=== PATIENT | female | born 1960 | race Caucasian/White ===

== ENCOUNTER 2016-09-17 11:11 | Emergency (ER) | payer BC ==
[~2016-09-17] VITALS: Ht 177.8 cm; Wt 141.5 kg
[2016-09-17 11:20] VITALS: BP 142/96; PULSE 76; RESP 18; TEMP 98; O2SAT 98
--- NOTE | 2016-09-17 11:47 | PD ---
HPI . left knee pain Chief Complaint: Injury Time Seen by Provider: 11:47 Travel History International Travel<30 days: No Contact w/Intl Traveler<30days: No Traveled to known affect area: No History of Present Illness HPI 55-year-old female with no significant past medical history here with complaints of left knee pain after sustaining a fall yesterday evening. Patient fell down and hurt her left knee. She is now complaining of pain over the entire knee. There is a small area of ecchymosis to the left medial knee along with some diffuse edema. Pain is rated as 9/10 without any other radiation. She denies any head injury or loss of consciousness. She has no other concerns. [facility] Past Medical History Depression: Yes Social History Tobacco Use: No Allergies-Medications (Allergen,Severity, Reaction): Coded Allergies: Codeine (Verified Allergy, Severe, Anaphylaxis, 09/17/16) Reported Meds & Prescriptions Reported Meds & Active Scripts Active Ibuprofen 800 Mg Tab 800 Mg PO TID Reported Bupropion HCl 75 Mg Tab 150 Mg PO BID Review of Systems General / Constitutional: No: Fever Eyes: No: Visual changes HENT: No: Headaches Cardiovascular: No: Chest Pain or Discomfort Respiratory: No: Shortness of Breath Gastrointestinal: No: Abdominal Pain Genitourinary: No: Dysuria Musculoskeletal: Positive: Pain (left knee pain) Skin: No Rash Neurologic: No: Weakness Psychiatric: No: Depression Endocrine: No: Polydipsia Hematologic/Lymphatic: No: Easy Bruising Physical Exam Narrative GENERAL: AAO x 3, no acute distress, Well-nourished, well-developed patient. Morbidly obese SKIN: Warm and dry. No visible rashes or bruising. HEAD: Normocephalic and atraumatic. EYES: No scleral icterus. No injection or drainage. ENT: No nasal drainage noted. Airway patent. NECK: Supple, trachea midline. No JVD. CARDIOVASCULAR: Regular rate and rhythm without murmurs, gallops, or rubs. RESPIRATORY: Breath sounds equal bilaterally. No accessory muscle use. No rhonchi or rales. GASTROINTESTINAL: Abdomen soft, non-tender, nondistended. EXTREMITIES: No cyanosis. Edema of the left knee. Extension and flexion are limited due to pain. There is mild ecchymosis to the medial left knee about 5 cm circular area. No obvious deformity. BACK: Nontender without obvious deformity. No CVA tenderness. PSYCH: AAO x 3, normal affect. Data Data Last Documented VS Vital Signs Date Time Temp Pulse Resp B/P Pulse Ox O2 Delivery O2 Flow Rate FiO2 09/17/16 11:20 98.0 76 18 142/96 98 Orders Knee, Complete (4vws) (09/17/16 11:49) Tramadol (Ultram) (09/17/16 12:00) ^ Cristopher Bandage (09/17/16 14:17) Crutches (09/17/16 14:17) MDM Medical Decision Making Medical Screen Exam Complete: Yes Emergency Medical Condition: Yes Medical Record Reviewed: Yes Differential Diagnosis knee sprain, less likely knee fracture, less likely knee dislocation Narrative Course 55-year-old female with no significant past medical history here with complaints of left knee pain after sustaining a fall yesterday evening. Patient fell down and hurt her left knee. She is now complaining of pain over the entire knee. There is a small area of ecchymosis to the left medial knee along with some diffuse edema. Pain is rated as 9/10 without any other radiation. She denies any head injury or loss of consciousness. She has no other concerns. Patient seen and examined. She does have pain to the left knee and there is a possibility for fracture. X-ray ordered. Tramadol given for pain control. Xray negative for acute fracture. Advised RICE Cristopher wrap and crutches Discussed findings with patient. Recommend ibuprofen to get rid of inflammation Patient verbalized understanding of instructions, questions were answered, and thanked me for their care. I advised them if their condition worsens, please return to the nearest emergency room for further care. Diagnosis Primary Impression: Left knee sprain Qualified Code: S83.92XA - Sprain of left knee, unspecified ligament, initial encounter Patient Instructions: General Instructions, Knee Sprain (ED) Additional Instructions: Rest the affected area as much as possible. Ice this area for 15-20 minutes at a time. You can do this every hour or as much as tolerated. Keep this area compressed (cristopher bandage) as tolerated. Elevate this area. Use ibuprofen as needed for pain and inflammation. Please return to emergency department if your symptoms return or worsen. Follow up with your primary care provider. Take medications as prescribed. Scripts Ibuprofen 800 Mg [id number] Mg PO TID #30 TAB Prov:Bradley Ramsay MD 09/17/16 Disposition: 01 DISCHARGE HOME Condition: Stable Eloise Cedeno Sep 17, 2016 11:47
[2016-09-17] MEDS ORDERED: BUPR75TA PO (11:48)
[2016-09-17] MEDS ORDERED: traMADol HCL 50 MG TAB PO ONE (12:00)
--- NOTE | 2016-09-17 14:00 | RADHPO ---
EXAM DATE/TIME: 09/17/2016 12:25 [facility] COMPARISON: No previous studies available for comparison. INDICATIONS : Fell last night in a puddle of water on bathroom floor, left medial knee pain. MEDICAL HISTORY : Arthritis. SURGICAL HISTORY : None. ENCOUNTER: Initial ACUITY: 2 days PAIN SCORE: 10/10 LOCATION: Left medial knee FINDINGS: Very severe osteoarthritis is noted involving the left femoral tibial and patellofemoral joints. The re is medial subluxation of the left distal femur in relation to the tibia. A small suprapatellar kn ee joint effusion is noted. No definite acute fracture is noted. CONCLUSION: 1. 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 2. Small suprapatellar knee joint effusion. 3. No definite acute fracture identified. Cornelio White MD on September 17, 2016 at 13:53 Board Certified Radiologist. This report was verified electronically.
[2016-09-17] MEDS ORDERED: IBUP800T23 PO (14:18)
== END 2016-09-17 14:37 | disposition home or self-care (01) ==
LOC: PHED 11:11 → PHEFT 14:37
DX: S83.92XA Sprain of unspecified site of left knee, initial encounter (principal); W18.30XA Fall on same level, unspecified, initial encounter
CPT/HCPCS: 73564; 99283; E0113